=== PATIENT | male | born 1955 | race Caucasian/White ===

== ENCOUNTER 2018-02-22 19:26 | Emergency (ER) | payer BC ==
[~2018-02-22] VITALS: Ht 170.2 cm; Wt 111.1 kg
[2018-02-22 19:54] VITALS: Ht 170.2 cm; Wt 111.1 kg
[2018-02-22 23:03] VITALS: BP 104/75
== END 2018-02-22 23:03 | disposition home or self-care (01) ==
LOC: ED 19:26
DX: S93.601A Unspecified sprain of right foot, initial encounter (principal); I10 Essential (primary) hypertension; E11.9 Type 2 diabetes mellitus without complications; X58.XXXA Exposure to other specified factors, initial encounter; Y93.89 Activity, other specified; Y92.89 Other specified places as the place of occurrence of the external cause; Y99.8 Other external cause status

== ENCOUNTER 2019-07-08 08:33 | Inpatient (IN) | payer OTHER ==
[~2019-07-08] VITALS: Ht 171.4 cm; Wt 126.7 kg
[2019-07-08 10:42] VITALS: Ht 171.4 cm; Wt 126.7 kg
[2019-07-08 11:21] LABS: PLATELET COUNT 209 x10^3mcL (130-400)
[2019-07-08 11:22] LABS: RED CELL DISTRIBUTION WIDTH 14.6 % (11.5-14.5)
[2019-07-08 13:04] LABS: T4(THYROXINE) 13.3 ug/dL (4.7-13.3)
[2019-07-08 13:26] LABS: CALCIUM 8.4 mg/dL (8.5-10.1); CARBON DIOXIDE 21.5 mmol/L (21-32); CHLORIDE SERUM 103 mmol/L (98-107); GFR1 > 60 mL/min; GLUCOSE SERUM 193 mg/dL (74-106); POTASSIUM SERUM 4.1 mmol/L (3.5-5.1); SODIUM SERUM 136 mmol/L (136-145)
[2019-07-08 13:30] LABS: ALKALINE PHOSPHATASE 138 U/L (46-116); ALT/SGPT 25 U/L (16-63); AST/SGOT 15 U/L (15-37); BILIRUBIN TOTAL 0.5 mg/dL (0.20-1.00); TOTAL PROTEIN, SERUM 7.2 g/dL (6.4-8.2)
[2019-07-08 13:33] LABS: ALBUMIN 3.2 g/dL (3.4-5.0)
[2019-07-08 13:44] LABS: BAND NEUTROPHIL 4 % (0-10); BASOPHIL 0 % (0-2); MONOCYTE 6 % (0-7); SEGMENTED NEUTROPHILS 78 % (37-75)
[2019-07-08 13:47] LABS: rbc morphology (normal/abnorm) ABNORMAL (NORMAL)
[2019-07-08 13:48] LABS: PLATELET MORPHOLOGY PLATELETS DECREASED
[2019-07-08 16:07] VITALS: BP 103/52
[2019-07-08] MEDS ORDERED: GLYBURIDE AND M1 TA4 PO (16:11)
[2019-07-08] MEDS ORDERED: JARDIANCE10 MG PO (16:12)
[2019-07-08] MEDS ORDERED: ZESTRIL2.5 MG PO (16:12)
[2019-07-08] MEDS ORDERED: GLIPIZIDE XL2.5 M1 (16:13)
[2019-07-08] MEDS ORDERED: LASIX20 MG PO (16:14)
[2019-07-08] MEDS ORDERED: NASAL MIST126 ML (16:14)
[2019-07-08] MEDS ORDERED: METFORMIN850 M1 PO (16:14)
[2019-07-08 16:26] LABS: microscopic required? YES; urine erythrocyte TRACE (NEGATIVE)
[2019-07-08 17:01] VITALS: BP 125/63
[2019-07-08 19:30] VITALS: BP 110/43
[2019-07-09 05:54] LABS: BASOPHIL % 0.2 % (0-2); PLATELET COUNT 182 x10^3mcL (130-400); RED CELL DISTRIBUTION WIDTH 14.2 % (11.5-14.5)
[2019-07-09 05:58] VITALS: BP 119/65
[2019-07-09 08:04] VITALS: BP 107/61
[2019-07-09 11:34] VITALS: BP 129/59
[2019-07-09] MEDS ORDERED: LEVAQUIN750 MG PO (12:53)
[2019-07-09] MEDS ORDERED: COREG3.125 MG PO (12:54)
[2019-07-09 16:33] VITALS: BP 127/56
== END 2019-07-09 19:00 | disposition home or self-care (01) | DRG 194 ==
LOC: ED 08:33 → DU 13:07 → EDBEDREQ 13:31 → DU 16:27
PROVIDERS: Emergency Medicine; ADMIT Hospitalist
DX: J18.9 Pneumonia, unspecified organism (principal); I42.9 Cardiomyopathy, unspecified; I11.0 Hypertensive heart disease with heart failure; I50.9 Heart failure, unspecified; I45.10 Unspecified right bundle-branch block; E11.65 Type 2 diabetes mellitus with hyperglycemia; E78.00 Pure hypercholesterolemia, unspecified; E66.9 Obesity, unspecified; Z68.39 Body mass index [BMI] 39.0-39.9, adult; Z79.84 Long term (current) use of oral hypoglycemic drugs; Z85.810 Personal history of malignant neoplasm of tongue
CPT/HCPCS: 82962; 83880; 87804; A9500; G0378; J1644; J1815; J1956; J2785; J2930; J3490; J7030; J7613; J7620; J7644